=== PATIENT | female | born 1960 | race Two or more races ===

== ENCOUNTER 2017-03-16 19:14 | Emergency (ER) | payer MEDICAID ==
[2017-03-16 19:51] VITALS: O2SAT 100
--- NOTE | 2017-03-16 22:20 | C.PDOC ---
History Of Present Illness 56 y/o female presents to ED c/o right upper back pain radiating down right arm since yesterday. Patient admits to some strenuous lifting yesterday. Otherwise, denies trauma, new weakness, new numbness, chest pain, SOB, nausea, vomiting, rash, or other associated symptoms. Time Seen by Provider: 03/16/17 22:03 Chief Complaint (Nursing): Back Pain History Per: Patient History/Exam Limitations: no limitations Onset/Duration Of Symptoms: Days Current Symptoms Are (Timing): Still Present Quality: "Pain" Exacerbating Factor(s): Movement Recent travel outside of the [place]: No Past Medical History Reviewed: Historical Data, Nursing Documentation, Vital Signs Vital Signs: Last Vital Signs Temp 97.7 F 03/16/17 22:42 Pulse 85 03/16/17 22:42 Resp 18 03/16/17 22:42 BP 126/83 03/16/17 22:42 Pulse Ox 100 03/16/17 22:42 - Medical History PMH: Gastritis, HTN - [facility] Procedures VACCINATION NEC (04/26/14) Family History: States: Unknown Family Hx - Social History Hx Alcohol Use: No Hx Substance Use: No Review Of Systems Except As Marked, All Systems Reviewed And Found Negative. Constitutional: Negative for: Fever, Chills Cardiovascular: Negative for: Chest Pain Respiratory: Negative for: Cough, Shortness of Breath Gastrointestinal: Negative for: Nausea, Vomiting Musculoskeletal: Positive for: Arm Pain (right), Back Pain (right upper). Negative for: Neck Pain Skin: Negative for: Rash Neurological: Negative for: Weakness, Numbness Physical Exam - Physical Exam Appears: Non-toxic, No Acute Distress Skin: Warm, Dry Head: Atraumatic, Normacephalic Neck: Normal ROM, No Midline Cervical Tenderness, Supple Chest: Symmetrical Cardiovascular: Rhythm Regular, No Murmur Respiratory: Normal Breath Sounds, No Rales, No Rhonchi, No Wheezing Gastrointestinal/Abdominal: Soft, No Tenderness Back: No Vertebral Tenderness, Paraspinal Tenderness (right trapezius tenderness ) Extremity: Normal ROM, Capillary Refill (< 2 sec. ) Extremity: Bilateral: Atraumatic, Normal Color And Temperature Pulses: Left Radial: Normal, Right Radial: Normal Neurological/Psych: Oriented x3, Normal Speech, Normal Cognition, Normal Motor, Normal Sensation ED Course And Treatment O2 Sat by Pulse Oximetry: 100 (RA) Pulse Ox Interpretation: Normal Progress Note: Treated with Motrin. On reassessment, patient is resting comfortably, and is in no acute distress. Patient instructed to follow up with clinic/PMD within 1-2 days. Medical Decision Making Medical Decision Making: muscular tenderness of R trapezius area, related to overexertion no neuro defecits Ice/NSAIDS Reassured Disposition Doctor Will See Patient In The: Office Counseled Patient/Family Regarding: Studies Performed, Diagnosis - Disposition Referrals: Soham Morelos MD [Staff Provider] - Disposition: HOME/ ROUTINE Disposition Time: 22:19 Condition: GOOD Additional Instructions: bolsa de hielo 1/2 hora por hora, nada caliente Ibuprofeno 400-600 mg cada 6 horas beth necessario pepcid 20 mg en la noche para evitar irritacion' del estomago debido al Ibuprofeno Sigue con Dr. Morelos en 2-3 peraza beth necessario. Instructions: Muscle Strain (ED) Print Language: TURKMEN - Clinical Impression Clinical Impression: Trapezius strain - Scribe Statement The provider has reviewed the documentation as recorded by the Scribamber Rachel Provider Scribe Attestation: All medical record entries made by the Scribe were at my direction and personally dictated by me. I have reviewed the chart and agree that the record accurately reflects my personal performance of the history, physical exam, medical decision making, and the department course for this patient. I have also personally directed, reviewed, and agree with the discharge instructions and disposition.
[2017-03-16 22:45] VITALS: BP 126/83; PULSE 85; RESP 18; TEMP 97.7
== END 2017-03-16 22:45 | disposition home or self-care (01) ==
LOC: C.ER 19:14
DX: S29.012A Strain of muscle and tendon of back wall of thorax, initial encounter (principal); X50.9XXA Other and unspecified overexertion or strenuous movements or postures, initial encounter; Y93.89 Activity, other specified; Y92.89 Other specified places as the place of occurrence of the external cause

== ENCOUNTER 2018-05-29 12:07 | Emergency (ER) | payer MEDICAID ==
[2018-05-29] MEDS ORDERED: Oxycodone/Acetaminophen 5/325 mg Tab PO STA (12:31)
[2018-05-29] MEDS ORDERED: Oxycodone/Acetaminophen 5/325 mg Tab ONE (12:36)
--- NOTE | 2018-05-29 13:07 | C.PDOC ---
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 Patient claims she slipped, fell and landed on her left side. Patient states pain is localized and more severe over Right shoulder, worst with Right arm movement. Patient denies head injury, LOC, syncope, LEE, dizziness, visual changes, focal deficits, neck pain, CP, SOB, dyspnea, palpitation, abd. pain, N/ V, back pain, denies obvious deformity, weakness, sensory or vascular deficits to B/L UEs and LEs. AT the time of evaluation, AAO#3, appears in pain. a. - HPI Time Seen by Provider: 05/29/18 12:08 Chief Complaint (Nursing): Trauma History Per: Patient History/Exam Limitations: no limitations Onset/Duration Of Symptoms: Mins Injury Occurred (Timing): Just Before Arrival Past Medical History Reviewed: Historical Data, Nursing Documentation, Vital Signs Vital Signs: Last Vital Signs Temp 99.4 F 05/29/18 13:34 Pulse 93 H 05/29/18 13:34 Resp 18 05/29/18 13:34 BP 122/83 05/29/18 13:34 Pulse Ox 99 05/29/18 14:50 - Medical History PMH: Gastritis, HTN - [facility] Procedures VACCINATION NEC (04/26/14) Family History: States: Unknown Family Hx - Social History Hx Alcohol Use: No Hx Substance Use: No Review Of Systems Except As Marked, All Systems Reviewed And Found Negative. Constitutional: Negative for: Other (head injury or deformity of injured area) Neurological: Negative for: Other (LOC, syncope, and LEE) Physical Exam - Physical Exam Appears: Well, Non-toxic, No Acute Distress Skin: Normal Color, Warm, Dry, No Rash, No Ecchymosis Head: Normacephalic Eye(s): bilateral: PERRL Ear(s): Bilateral: Normal Nose: No Flaring, No Discharge Oral Mucosa: Moist Throat: No Drooling Neck: Normal ROM, Trachea Midline, No Midline Cervical Tenderness, No Paracervical Tenderness, No Step Off Deformity, No Supple Chest: Symmetrical, No Deformity, Tenderness (left lateral chest wall overlying 5-8 intercostal spaces), No Ecchymosis, No Subcutaneous Emphysema Cardiovascular: Rhythm Regular, No Murmur, No JVD Respiratory: No Decreased Breath Sounds, No Accessory Muscle Use, No Rales, No Rhonchi, No Stridor, No Wheezing Gastrointestinal/Abdominal: Soft, No Tenderness, No Distention, No Guarding Back: No Vertebral Tenderness, No Paraspinal Tenderness Extremity: No Normal ROM (ROM decreased of right shoulder due to pain ), Tenderness (diffuse right shoulder tenderness), Capillary Refill (less than Right hand), No Deformity (no palpable deformity), No Swelling Neurological/Psych: Oriented x3, Normal Speech, Normal Cognition, Normal Motor, Normal Sensation, Normal Reflexes ED Course And Treatment O2 Sat by Pulse Oximetry: 99 Pulse Ox Interpretation: Normal - Other Rad RIGHT SHOULDER X-Ray: Interpreted by Me, Viewed By Me Interpretation: (+)Right humeral head fx with dislocation Pelvi w/B/L hips X-Ray: Interpreted by Me, Viewed By Me Interpretation: (-) acute fx or dislocation - CT Scan/US CT chest w/o contrast Other Rad Studies (CT/US): Radiology Report Reviewed CT/US Interpretation: IMPRESSION: 1. All there multiple thoracic spine compression fractures appreciated, of indeterminate age as well as the L3 vertebral body, there is no rib fracture identified bilaterally, pneumothorax or pleural effusion bilaterally. No obvious pulmonary contusion. 2. Cardiomegaly and potential pulmonary artery hypertension. 3. Mild right hemidiaphragm elevation of indeterminate age. Progress Note: Impression: 57 year old female with right shoulder pain from fall. Plans: -- CT chest w/o contrast. -- oxyCODONE. -- XR hips. -- XR right shoulder. On re-eval, pt is afebrile, hemodynamically stable. Non- toxic. Ambulatory in ED with stable gait. PulseOx 99% on RA. Head: AT/NC. ENT: no acute findings. Neck: Supple, (-) midline tenderness. Lungs: CTA B/L, BS equal B/L. Abd: Soft, non-tender. RUE: diffuse Right shoulder tenderness, mild edema. No obvious deformity, no neurovascular deficits distally. Neurologically intact. Imaging of Right shoulder review (+) humeral head fx. Pelvis with B/L hips (-) acute fx or dislocation. Chest w/o contrast (-) acute findings. Sling applied to Right shoulder. No neurovascular deficist distally. results review and discussed with patient. Ref. to F/U with PMD, Ortho in 1-2 days for re-eavl. Disposition Counseled Patient/Family Regarding: Diagnosis, Need For Followup, Rx Given - Disposition Referrals: Soham Morelos MD [Staff Provider] - Brennen Stoddard MD [Staff Provider] - Disposition: HOME/ ROUTINE Disposition Time: 13:41 Condition: STABLE Additional Instructions: SLING TAKE PAIN MEDICATION NEED FOLLOW UP WITH ORTHOPEDIST IN 1-2 DAYS FOR RE-EVALUATION. RETURN TO ED IF ANY WORSENING OR NEW CHANGES. Prescriptions: traMADol [Ultram] 50 mg PO TID #10 tab Instructions: Shoulder Fracture, Bruised Rib (DC) Forms: [employer] 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 - Scribe Statement The provider has reviewed the documentation as recorded by the Corin Urrutia Do All medical record entries made by the Scribe were at my direction and personally dictated by me. I have reviewed the chart and agree that the record accurately reflects my personal performance of the history, physical exam, medical decision making, and the department course for this patient. I have also personally directed, reviewed, and agree with the discharge instructions and disposition.
[2018-05-29 13:35] VITALS: BP 122/83; PULSE 93; RESP 18; TEMP 99.4; O2SAT 99
--- NOTE | 2018-05-29 14:44 | CT ---
Date of service: 05/29/2018 PROCEDURE: CT Chest without contrast HISTORY: Left chest wall pain s/o injury COMPARISON: None. TECHNIQUE: Contiguous axial images were obtained through the chest without intravenous contrast enhancement. Sagittal and coronal reconstructions were performed. Radiation dose (DLP): 39.57 mGy-cm. This CT exam was performed using one or more of the following dose reduction techniques: Automated exposure control, adjustment of the mA and/or kV according to patient size, and/or use of iterative reconstruction technique. FINDINGS: LUNGS: Clear lungs. Visualized airway clear. MEDIASTINUM: The thoracic inlet appears unremarkable Unremarkable thoracic aorta. No aneurysm. Mild cardiomegaly. Main pulmonary artery dilated to 3.5 cm suggesting pulmonary artery hypertension potentially. Clinically correlate. No significant vascular congestion. No lymphadenopathy. PLEURA: No pleural fluid. No pneumothorax. BONES: No rib fractures are identified bilaterally. However, there are multiple compression fractures of the vertebral bodies of the thoracic spine including T2, T7, T8, T9, T10 and T11 as well as L3, all of which are of indeterminate age. No prominent retropulsion of endplates identified in the any of these levels. UPPER ABDOMEN: Mild right hemidiaphragm elevation of indeterminate age. OTHER FINDINGS: None. IMPRESSION: 1. All there multiple thoracic spine compression fractures appreciated, of indeterminate age as well as the L3 vertebral body, there is no rib fracture identified bilaterally, pneumothorax or pleural effusion bilaterally. No obvious pulmonary contusion. 2. Cardiomegaly and potential pulmonary artery hypertension. 3. Mild right hemidiaphragm elevation of indeterminate age.
--- NOTE | 2018-05-29 18:12 | RAD ---
Date of service: 05/29/2018 PROCEDURE: PELVIS AND BILATERAL HIPS RADIOGRAPHS HISTORY: injury COMPARISON: None available. TECHNIQUE: Frontal view the pelvis and bilateral hip joints has been submitted for interpretation with bilateral frog-leg lateral views of the hip joints. FINDINGS: There is no acute fracture of the bilateral hip joints or dislocation. Bowel obscures the upper iliac bones and the entire sacrum but no displaced fracture of the pelvic ring is identified grossly. Pubic symphysis appears intact. No destructive bony lesion noted. Benign sclerotic density noted at the right ischium/ vertical pubic ramus. Degenerative joint changes are appreciate bilateral hip and sacroiliac joints and appear moderate in severity. Local soft tissues appear unremarkable. IMPRESSION: No acute fracture of the pelvic ring or the bilateral hip joints. Degenerative sacroiliac and hip joint changes are identified. Exam is somewhat obscured by overlying bowel at the upper iliac bones and sacrum.
--- NOTE | 2018-05-29 18:13 | RAD ---
Date of service: 05/29/2018 PROCEDURE: Radiographs of the Right Shoulder HISTORY: injury COMPARISON: No prior. FINDINGS: BONES: There is a comminuted fracture of the right humeral head with limited impaction. No dislocation apparent. No subluxation. Degenerative changes seen the acromioclavicular joint. JOINTS: As above. SOFT TISSUES: Normal. OTHER FINDINGS: None. IMPRESSION: Comminuted fracture right humeral head without subluxation dislocation grossly evident. Degenerative changes acromioclavicular joint.
== END 2018-05-29 14:59 | disposition home or self-care (01) ==
LOC: C.ER 12:07
DX: S42.91XA Fracture of right shoulder girdle, part unspecified, initial encounter for closed fracture (principal); S20.212A Contusion of left front wall of thorax, initial encounter; W01.0XXA Fall on same level from slipping, tripping and stumbling without subsequent striking against object, initial encounter; Y93.E1 Activity, personal bathing and showering; Y92.002 Bathroom of unspecified non-institutional (private) residence as the place of occurrence of the external cause